=== PATIENT | female | born 1965 | race Caucasian/White ===

== ENCOUNTER → 2018-05-24 | Outpatient (CLI) | payer BC ==
[~2018-05-24] MED LIST: ALBUTEROL0.09 MG/A2 IH; KEFLEX500 MG PO; NAPROSYN500 MG PO; PLAQUENIL200 MG PO; TRAMADOL HCL50 MG PO; VOLTAREN75 MG PO; ZITHROMAX Z PA250 MG PO
== END | disposition home or self-care (01) ==
LOC: RAD 13:39
DX: M06.831 Other specified rheumatoid arthritis, right wrist (principal); M06.841 Other specified rheumatoid arthritis, right hand; M25.441 Effusion, right hand; M25.431 Effusion, right wrist

== ENCOUNTER → 2018-11-03 | Outpatient (CLI) | payer BC | END | disposition home or self-care (01) | LOC: US 17:18 | DX: I73.9 Peripheral vascular disease, unspecified (principal); S99.821A Other specified injuries of right foot, initial encounter; L89.892 Pressure ulcer of other site, stage 2; X58.XXXA Exposure to other specified factors, initial encounter; Y93.89 Activity, other specified; Y92.89 Other specified places as the place of occurrence of the external cause; Y99.8 Other external cause status ==

== ENCOUNTER → 2020-07-17 | Outpatient (CLI) | payer BC | END | disposition home or self-care (01) | LOC: MAMMO 08:27 | PROVIDERS: ATTEND Family Medicine | DX: Z12.31 Encounter for screening mammogram for malignant neoplasm of breast (principal) ==

== ENCOUNTER → 2020-08-14 | Outpatient (CLI) | payer BC | END | disposition home or self-care (01) | LOC: COVID19 13:28 | PROVIDERS: ATTEND Family Medicine | DX: Z20.828 Contact with and (suspected) exposure to other viral communicable diseases (principal) ==

== ENCOUNTER 2023-07-20 11:05 | Emergency (ER) | payer BC ==
[~2023-07-20] VITALS: Wt 50.3 kg
[2023-07-20 12:00] LABS: BASO # 0.1 10*3/uL (0.0-0.1); EOS # 0.2 10*3/uL (0.0-0.4); HEMATOCRIT 40.9 % (37.0-47.0); LYMPH # 1.3 10*3/uL (1.3-4.4); LYMPH % 15.4 % (27.0-41.0); MEAN CELL VOLUME 94.9 fl (81.0-99.0); MEAN CORPUSCULAR HGB CONC 33.7 g/dl (33.0-37.0); MEAN PLATELET VOLUME 8.8 fl (9.6-12.3); MONO # 0.7 10*3/uL (0.1-1.0); MONO % 8.1 % (3.0-9.0); NEUT # 6.1 10*3/uL (2.3-7.9); PLATELET COUNT AUTOMATED 362 10*3/uL (130-400); RED BLOOD COUNT 4.31 10*6/uL (4.10-5.10); RED CELL DISTRI WIDTH 13.2 % (0-14.5); WHITE BLOOD COUNT 8.4 10*3/uL (4.8-10.8)
[2023-07-20 12:24] LABS: ALKALINE PHOSPHATASE 92 U/L (46-116); BUN 19 mg/dl (9-23); CHLORIDE 104 mmol/L (98-107); POTASSIUM 3.8 mmol/L (3.4-5.1); SGPT/ALT 17 U/L (5-49); TOTAL PROTEIN 7.9 gm/dL (6.0-8.0)
[2023-07-20] MEDS ORDERED: MELOXICAM7.5 MG PO (12:40)
== END 2023-07-20 12:46 | disposition home or self-care (01) ==
LOC: ED 11:05
PROVIDERS: Physician Assistant Medical
DX: R09.1 Pleurisy (principal); I10 Essential (primary) hypertension; M19.90 Unspecified osteoarthritis, unspecified site; Z98.51 Tubal ligation status; F17.290 Nicotine dependence, other tobacco product, uncomplicated

== ENCOUNTER → 2023-09-23 | Outpatient (CLI) | payer BC ==
[~2023-09-23] MED LIST changes: +MELOXICAM7.5 MG PO
== END | disposition home or self-care (01) ==
LOC: US 14:52
PROVIDERS: ATTEND Family Medicine
DX: E04.1 Nontoxic single thyroid nodule (principal)